=== PATIENT | female | born 2000 | race African-American/Black ===

== ENCOUNTER 2019-01-27 17:43 | Emergency (ER) | payer MEDICAID ==
[~2019-01-27] VITALS: Ht 170.2 cm; Wt 65.0 kg
[2019-01-27 17:46] VITALS: BP 139/80
== END 2019-01-27 19:30 | disposition left against medical advice (07) ==
LOC: ER 17:43
DX: Z53.21 Procedure and treatment not carried out due to patient leaving prior to being seen by health care provider (principal)

== ENCOUNTER 2019-01-27 20:10 | Emergency (ER) | payer MEDICAID ==
[~2019-01-27] VITALS: Ht 165.1 cm; Wt 66.0 kg
[2019-01-27 23:05] VITALS: BP 121/79
== END 2019-01-27 23:35 | disposition left against medical advice (07) ==
LOC: ER 20:10
DX: Z53.21 Procedure and treatment not carried out due to patient leaving prior to being seen by health care provider (principal)

== ENCOUNTER 2019-03-21 09:37 | Emergency (ER) | payer MEDICAID ==
[~2019-03-21] VITALS: Ht 162.6 cm; Wt 64.0 kg
[2019-03-21 10:30] VITALS: BP 108/77
== END 2019-03-21 16:08 | disposition left against medical advice (07) ==
LOC: ER 09:37
DX: F23 Brief psychotic disorder (principal); R41.82 Altered mental status, unspecified; Y04.0XXA Assault by unarmed brawl or fight, initial encounter; Y93.89 Activity, other specified; Y92.89 Other specified places as the place of occurrence of the external cause; Y99.8 Other external cause status
CPT/HCPCS: 99284; Z7610